=== PATIENT | male | born 2000 | race Two or more races ===

== ENCOUNTER 2021-03-03 12:15 | Emergency (ER) | payer MEDICAID, OTHER ==
[~2021-03-03] VITALS: Ht 167.6 cm; Wt 65.8 kg
[2021-03-03 15:38] VITALS: BP 134/66
[2021-03-03] MEDS ORDERED: IBUPROFEN 800 MG TAB PO ONE (15:45)
== END 2021-03-03 16:45 | disposition home or self-care (01) ==
LOC: ER 12:15
DX: S16.1XXA Strain of muscle, fascia and tendon at neck level, initial encounter (principal); M25.512 Pain in left shoulder; R51.9 Headache, unspecified; R42 Dizziness and giddiness; R07.89 Other chest pain; M79.604 Pain in right leg; M79.605 Pain in left leg; M79.602 Pain in left arm; M79.601 Pain in right arm; M25.552 Pain in left hip; M25.551 Pain in right hip; V49.9XXA Car occupant (driver) (passenger) injured in unspecified traffic accident, initial encounter; Y93.89 Activity, other specified; Y92.89 Other specified places as the place of occurrence of the external cause; Y99.8 Other external cause status
CPT/HCPCS: 71046; 72040; 73030

== ENCOUNTER 2021-04-23 12:22 | Emergency (ER) | payer MEDICAID ==
[~2021-04-23] VITALS: Ht 167.6 cm; Wt 59.0 kg
[2021-04-23 13:40] VITALS: BP 139/82
== END 2021-04-23 13:47 | disposition home or self-care (01) ==
LOC: ER 12:22
DX: M79.10 Myalgia, unspecified site (principal); F41.9 Anxiety disorder, unspecified; R51.9 Headache, unspecified; V89.2XXA Person injured in unspecified motor-vehicle accident, traffic, initial encounter; Y93.89 Activity, other specified; Y92.89 Other specified places as the place of occurrence of the external cause; Y99.8 Other external cause status
CPT/HCPCS: 70450; 72040